=== PATIENT | male | born 1985 | race Caucasian/White ===

== ENCOUNTER 2021-02-05 20:12 | Emergency (ER) | payer OTHER ==
[~2021-02-05] VITALS: Ht 175.3 cm; Wt 90.7 kg
--- NOTE | 2021-02-05 20:14 | NUR ---
PT DRE BLS. TAKEN TO BED 7
[2021-02-05 20:15] VITALS: BP 146/92
--- NOTE | 2021-02-05 20:15 | NUR ---
DRE FROM HOME, WITH C/O OF DOG BITE. PT. STATES IT WAS FROM SMALL DOG, "MAYBE A IVAN." PT. ALSO STATES IT HAPPENED AROUND 7:[address] IN [place]. LACERATION OF 1 INCH ON LEFT FOREARM, SCRATCHES NOTED ON RIGHT INDEX FINGER AND ABDOMEN. PT. RATES PAIN 10/10 ON THE PAIN SCALE AT THIS TIME. DENIES N/V/D; SKIN IS PINK/WARM/DRY; AAOX4 WITH EVEN AND STEADY GAIT; HR EVEN AND REGULAR; PT DENIES ANY FEVER, CP, SOB, OR COUGH AT THIS TIME; VSS; PATIENT POSITIONED FOR COMFORT; HOB ELEVATED; BEDRAILS UP X2; BED DOWN. ER MD MADE AWARE OF PT STATUS. PMH: DENIES ALLERGIES: NKA
--- NOTE | 2021-02-05 20:52 | NUR ---
Dr. Ramirez examining patient.
--- NOTE | 2021-02-05 20:54 | NUR ---
ANIMAL BITE REPORT FAXED TO [facility] ([address], [place] [address])
[2021-02-05] MEDS ORDERED: AMOXIL/CLAVULANATE 875/125 MG 1 TAB PO ONE (21:00)
[2021-02-05] MEDS ORDERED: RABIES IMMUNE GLOBULIN 150 IU/ML IM ONE (21:00)
[2021-02-05] MEDS ORDERED: RABIES VACCINE 2.5 IU VIAL IMVAC ONE (21:00)
[2021-02-05] MEDS ORDERED: IBUPROFEN 800 MG TAB PO ONE (21:00)
--- NOTE | 2021-02-05 21:32 | NUR ---
PT WOUNDS ON L FOREARM, R HAND, AND ABDOMEN IRRIGATED WITH NORMAL SALINE. PT BECAME NAUSEATED DURING IRRIGATION AND REQUESTED STOP
--- NOTE | 2021-02-05 21:44 | NUR ---
PATIENT REFUSED RABIES VACCINE. EDUCATED ON IMPORTANCE OF MEDICATION, PATIENT STILL REFUSED.
[2021-02-05] MEDS ORDERED: AMOX-1000 PO (22:14)
[2021-02-05] MEDS ORDERED: IBUP-2218 PO (22:14)
[2021-02-05] MEDS ORDERED: ONDANSETRON 4 MG ODT PO ONE (22:20)
[2021-02-05] MEDS ORDERED: HYDROcodone/APAP 5/325 MG 1 TAB TAB PO ONE (22:20)
--- NOTE | 2021-02-06 00:09 | NUR ---
PT. IN SUPINE POSITION, RESTING WITH EYES CLOSED AND MOUTH SLIGHTLY OPEN. VOICES NO COMPLAINTS AT THIS TIME.
[2021-02-06] MEDS ORDERED: ACET-9527 PO (00:23)
[2021-02-06 00:27] VITALS: BP 124/71
--- NOTE | 2021-02-06 00:27 | NUR ---
Patient discharged with v/s stable. Written and verbal after care instructions given and explained. Patient alert, oriented and verbalized understanding of instructions. Ambulatory with steady gait. All questions addressed prior to discharge. ID band removed. Patient advised to follow up with PMD. Rx of NORCO, AMOXICILLIN/POTASSIUM CLAV, AND IBUPROFEN given. Patient educated on indication of medication including possible reaction and side effects. Opportunity to ask questions provided and answered.
== END 2021-02-06 00:27 | disposition home or self-care (01) ==
LOC: MED 20:12
DX: S61.250A Open bite of right index finger without damage to nail, initial encounter (principal); S31.150A Open bite of abdominal wall, right upper quadrant without penetration into peritoneal cavity, initial encounter; S51.852A Open bite of left forearm, initial encounter; Z79.899 Other long term (current) drug therapy; W54.0XXA Bitten by dog, initial encounter; Y93.89 Activity, other specified; Y92.89 Other specified places as the place of occurrence of the external cause; Y99.8 Other external cause status
CPT/HCPCS: 90375; 90471; 90675; 90715; 99284; Q0162